=== PATIENT | female | born 1950 | race Caucasian/White ===

== ENCOUNTER → 2018-07-22 10:49 | Outpatient (CLI) | payer OTHER, SELFPAY ==
--- NOTE | 2018-07-22 10:30 | DI.MG.S_ITS ---
Patient Name: TONA CORNELL date: 1950 Sex: F Attending Physician: Rajiv Indications: Date: 07/22/2018 11:11 At the request of: RAVEN CUEVAS Procedure: MM screening mammo BI BILATERAL DIGITAL SCREENING MAMMOGRAM 3D/2D WITH CAD: 07/22/2018 CLINICAL: Routine screening. Family history of breast cancer. Comparison is made to exams dated: 06/01/2017 mammogram, 11/16/2015 mammogram, and 08/17/2014 mammogram - [facility]. The tissue of both breasts is heterogeneously dense. This may lower the sensitivity of mammography. Current study was also evaluated with a Computer Aided Detection (CAD) system. No significant masses, calcifications, or other findings are seen in either breast. There has been no significant interval change. IMPRESSION: NEGATIVE There is no mammographic evidence of malignancy. A 1 year screening mammogram is recommended. This exam was interpreted at Station ID: [id number]. NOTE: For mammograms, a report in lay terms will be sent to the patient. Approximately 15% of breast malignancies will not be visualized mammographically. In the management of a palpable breast mass, a negative mammogram must not discourage biopsy of a clinically suspicious lesion. Electronically Signed By: Refugio berry/sandip:07/22/2018 21:43:15 letter sent: Normal Exam ACR BI-RADS Category 1: Negative [id number]
== END ==
PROVIDERS: PCP Family Medicine; Visit Provider Family Medicine
DX: Z12.31 Encounter for screening mammogram for malignant neoplasm of breast (principal); Z80.3 Family history of malignant neoplasm of breast
CPT/HCPCS: 77063; 77067